=== PATIENT | female | born 1995 | race Hispanic/Latino ===

== ENCOUNTER 2025-10-14 13:58 | Outpatient (CLI) | payer BC, MEDICAID | END 2025-10-14 13:59 | disposition home or self-care (01) | LOC: CSHULT 13:58 | PROVIDERS: ATTEND Family Medicine | DX: R94.5 Abnormal results of liver function studies (principal); K76.0 Fatty (change of) liver, not elsewhere classified; K80.20 Calculus of gallbladder without cholecystitis without obstruction | CPT/HCPCS: 76700; 93976 ==